=== PATIENT | male | born 1985 | race Caucasian/White ===

== ENCOUNTER 2016-12-14 09:26 | Inpatient (IN) | payer OTHER ==
--- NOTE | 2016-12-14 09:54 | EDPHY ---
H & P Time Seen by Provider: 12/14/16 09:33 HPI/ROS: CHIEF COMPLAINT: Abdominal pain jaundice and itching HISTORY OF PRESENT ILLNESS: Patient presented 3 weeks ago with nausea vomiting to his primary care physician and then started having jaundice 2 weeks ago. He apparently had ultrasound and CT to in 2 weeks ago at [facility], which were negative. His liver function tests continue to increase with his bilirubin 2 days ago at 24 with conjugated 21 and an INR 0.92 days ago as well. Hepatitis panel was positive for B surface antibody but otherwise negative. Today he has continued abdominal discomfort which is mild. His jaundice is worsened and is severe. His itching is also severe and only a little bit helped by Benadryl or Atarax. Worse with oral intake. REVIEW OF SYSTEMS: Eye: no change in vision ENT: no sore throat Cardiac: no chest pain or syncope Pulmonary: no cough or SOB Abdomen: José colored stools Musculoskeletal: no back pain Skin: Jaundice Neuro: no headache Constitutional: no fever : Darker urine A comprehensive 10 point review of systems is otherwise negative aside from elements mentioned in the history of present illness. PAST MEDICAL HISTORY: Was taking a supplement for anxiety but stopped November 24. History of migraines and fibromyalgia. Vasectomy. Social history: No alcohol for the last 2 years. No drugs. No see him enough in. No wild mushrooms. No travel to developing countries. General Appearance: Alert and conversant, cooperative. Eyes: Icteric. ENT, Mouth: Slightly dry mucous membranes. Respiratory: Normal respiratory effort, breath sounds equal, lungs are clear to auscultation. Cardiovascular: Regular rate and rhythm. Gastrointestinal: No right upper quadrant tenderness. Minimal left lower quadrant tenderness. No rebound or guarding. Neurological: Alert and oriented x3. Normally conversant. Face symmetric, normal movement and sensation in all extremities. Skin: Jaundiced Musculoskeletal: No peripheral edema and no joint swelling. Psychiatric: Not agitated. Emergency Department course/MDM: Plan for repeat labs, he did see Dr. Lopez's PA at [facility], plan for repeat imaging and admission for further evaluation. Benadryl 50 mg IV for itching. Discussed with Dr. Cabrera at 10:29 a.m. who was on-call for Dr. Lopez, recommends MRI abdomen and MRCP and he will consult. Smoking Status: Former smoker Constitutional: Initial Vital Signs Temperature (C) 36.4 C 12/14/16 09:27 Heart Rate 75 12/14/16 09:27 Respiratory Rate 16 12/14/16 09:27 Blood Pressure 131/85 H 12/14/16 09:27 O2 Sat (%) 97 12/14/16 09:27 O2 Delivery Mode Room Air Allergies/Adverse Reactions: No Known Allergies Allergy (Unverified 12/14/16 09:28) Home Medications: Medication Instructions Recorded Methocarbamol [Robaxin 750 mg (*)] 750 mg PO QID PRN 08/27/16 Pregabalin [LYRICA] 100 mg PO TID 08/27/16 hydrOXYzine HCL [Hydroxyzine HCl] 50 mg PO QID 09/19/16 traMADol [Ultram 50 mg (*)] 50 mg PO Q4 PRN 09/19/16 Cyclobenzaprine [Flexeril 10 MG 10 mg PO HS 12/14/16 (*)] Dextroamphetamine/Amphetamine 15 mg PO TID 12/14/16 [ADDERALL 15 MG TABLET] Herbals/Supplements -Info Only 1 ea PO DAILY 12/14/16 Omeprazole 40 mg PO DAILY 12/14/16 Sertraline HCl [Zoloft 100mg (*)] 100 mg PO DAILY 12/14/16 Medical Decision Making Consult/Admit Bed Type: [place] [id number], [facility] [address] [facility] - Data Points Laboratory Results: Laboratory Results 12/14/16 09:38 12/14/16 09:38 12/14/16 12/14/16 12/14/16 09:38 09:38 09:38 WBC 9.83 10^3/uL H 10^3/uL (3.80-9.50) RBC 5.14 10^6/uL 10^6/uL (4.40-6.38) Hgb 15.6 g/dL g/dL (13.7-17.5) Hct 44.6 % % (40.0-51.0) MCV 86.8 fL fL (81.5-99.8) MCH 30.4 pg pg (27.9-34.1) MCHC 35.0 g/dL g/dL (32.4-36.7) RDW 15.4 % H % (11.5-15.2) Plt Count 280 10^3/uL 10^3/uL (150-400) MPV 12.3 fL H fL (8.7-11.7) Neut % (Auto) 79.6 % H % (39.3-74.2) Lymph % (Auto) 11.7 % L % (15.0-45.0) [place] % (Auto) 7.3 % % (4.5-13.0) Eos % (Auto) 0.2 % L % (0.6-7.6) Baso % (Auto) 0.4 % % (0.3-1.7) Nucleat RBC Rel Count 0.0 % % (0.0-0.2) Absolute Neuts (auto) 7.82 10^3/uL H 10^3/uL (1.70-6.50) Absolute Lymphs (auto) 1.15 10^3/uL 10^3/uL (1.00-3.00) Absolute Monos (auto) 0.72 10^3/uL 10^3/uL (0.30-0.80) Absolute Eos (auto) 0.02 10^3/uL L 10^3/uL (0.03-0.40) Absolute Basos (auto) 0.04 10^3/uL 10^3/uL (0.02-0.10) Absolute Nucleated RBC 0.00 10^3/uL 10^3/uL (0-0.01) Immature Gran % 0.8 % % (0.0-1.1) Immature Gran # 0.08 10^3/uL 10^3/uL (0.00-0.10) PT 12.2 SEC SEC (12.0-15.0) INR 0.91 (0.83-1.16) Sodium 139 mEq/L mEq/L (134-144) Potassium 4.6 mEq/L mEq/L (3.5-5.2) Chloride 105 mEq/L mEq/L (97-110) Carbon Dioxide 20 mEq/l L mEq/l (22-31) Anion Gap 14 mEq/L mEq/L (8-16) BUN 14 mg/dL mg/dL (7-23) Creatinine 0.7 mg/dL mg/dL (0.7-1.3) Estimated GFR > 60 Glucose 107 mg/dL H mg/dL (70-100) Calcium 9.6 mg/dL mg/dL (8.5-10.4) Total Bilirubin 22.1 mg/dL H mg/dL (0.1-1.4) Conjugated Bilirubin 19.6 mg/dL H mg/dL (0.0-0.5) Unconjugated Bilirubin 2.5 mg/dL H mg/dL (0.0-1.1) AST 42 IU/L IU/L (17-59) ALT 59 IU/L IU/L (21-72) Alkaline Phosphatase 287 IU/L H IU/L (38-126) Total Protein 8.1 g/dL g/dL (6.3-8.2) Albumin 4.2 g/dL g/dL (3.5-5.0) Lipase 76.0 IU/L IU/L (23-300) Medications Given: Discontinued Medications Diphenhydramine HCl (Benadryl Injection) 50 mg IVP EDNOW ONE Stop: 12/14/16 09:52 Last Admin: 12/14/16 09:57 Dose: 50 mg Departure - Departure Disposition: [facility] Inpatient Acute Clinical Impression: Hyperbilirubinemia Condition: Fair
[2016-12-14 09:55] LABS: % IMMATURE GRANULYOCYTES 0.8 % (0.0-1.1); ABSOLUTE IMMATURE GRANULOCYTES 0.08 10^3/uL (0.00-0.10); ADD DIFF? NO; ADD MORPH? NO; ADD SCAN? NO; ATYPICAL LYMPHOCYTE FLAG 0 (0-99); FRAGMENT RBC FLAG 0 (0-99); HEMATOCRIT 44.6 % (40.0-51.0); HEMOGLOBIN 15.6 g/dL (13.7-17.5); LEFT SHIFT FLG 0 (0-99); LIPEMIA HEMOLYSIS FLAG 90 (0-99); MEAN CELL HEMOGLOBIN 30.4 pg (27.9-34.1); MEAN CELL VOLUME 86.8 fL (81.5-99.8); MEAN PLATELET VOLUME 12.3 fL (8.7-11.7); PLATELET CLUMPS FLAG 10 (0-99); PLATELET COUNT 280 10^3/uL (150-400); RED BLOOD CELL COUNT 5.14 10^6/uL (4.40-6.38); RED CELL DISTRIBUTION WIDTH 15.4 % (11.5-15.2)
[2016-12-14 10:03] LABS: INR 0.91 (0.83-1.16); PROTIME(PATIENT) 12.2 SEC (12.0-15.0)
[2016-12-14 10:10] LABS: ALANINE AMINOTRANSFERASE 59 IU/L (21-72); ALBUMIN 4.2 g/dL (3.5-5.0); ALKALINE PHOSPHATASE 287 IU/L (38-126); ANION GAP 14 mEq/L (8-16); ASPARTATE AMINOTRANSFERASE 42 IU/L (17-59); BILIRUBIN,TOTAL 22.1 mg/dL (0.1-1.4); BILIRUBIN-CONJUGATED 19.6 mg/dL (0.0-0.5); BILIRUBIN-UNCONJUGATED 2.5 mg/dL (0.0-1.1); CALCIUM 9.6 mg/dL (8.5-10.4); CARBON DIOXIDE 20 mEq/l (22-31); CHLORIDE 105 mEq/L (97-110); CREATININE 0.7 mg/dL (0.7-1.3); GLOMERULAR FILTRATION RATE > 60; GLUCOSE 107 mg/dL (70-100); POTASSIUM 4.6 mEq/L (3.5-5.2); SODIUM 139 mEq/L (134-144); TOTAL PROTEIN 8.1 g/dL (6.3-8.2)
[2016-12-14] MEDS ORDERED: IOPAMIDOL (ISOVUE-300) 100 ML BTL IV ONE (10:34)
[2016-12-14] MEDS ORDERED: ONDANSETRON DISINTEGRATING 4 MG TAB PO PRN (11:55)
[2016-12-14] MEDS ORDERED: ONDANSETRON 4 MG/2 ML VIAL IVP PRN (11:55)
[2016-12-14] MEDS ORDERED: ACETAMINOPHEN 325 MG TAB PO PRN (11:55)
--- NOTE | 2016-12-14 15:21 | GHP ---
DATE OF ADMISSION: 12/14/2016 CHIEF COMPLAINT: Jaundice and pruritus. HISTORY OF PRESENT ILLNESS: A 31-year-old male with a new hyperbilirubinemia. The patient reports being in his normal state of health approximately 3 weeks ago, when developing some nausea, vomiting, and constipation. The patient was treated symptomatically for his constipation; then noted approximately 2 weeks ago that his constipation converted to soft stools that had lightened in color to nearly a beny color, concurrently noted yellowing of his skin, itching, fatigue, some nausea, no vomiting. The patient has been evaluated in outpatient gastroenterology clinic, by Dr. Lopez, with laboratories and imaging obtained. The patient is presenting today as his symptoms have persisted. His bilirubin is measured at 24 in the outside clinic. Here on the medical floor, the patient is denying any fever or chills, vision changes, notice some mild dysphagia with liquids and solids. Denies chest pain, shortness of breath. Denies abdominal pain, has had beny-colored stools and darkening of his urine. Denies lower extremity edema or abdominal distention. PAST MEDICAL HISTORY: 1. Attention deficit hyperactivity disorder. 2. Fibromyalgia. SOCIAL HISTORY: Negative for tobacco. Patient quit drinking alcohol 2 years ago, but did not have heavy usage prior. Denies illicit drugs or marijuana. FAMILY HISTORY: Negative for liver disease. REVIEW OF SYSTEMS: A 10-point review of systems is negative with the exception of that reported in the HPI. HOSPITAL COURSE: Patient has been on stable dosing of both Lyrica and Adderall for many months. He did use a new herbal supplement for anxiety called Ashwagandha , which he took the recommended dosing for approximately 10 days and completed this early November. Denies any other new supplements or drug exposures. PHYSICAL EXAMINATION: VITAL SIGNS: Blood pressure 120/78, heart rate 56, respiratory rate 16, 98% on room air, 36.8. GENERAL: This is a young male with jaundiced skin. HEENT: Notable for moist mucous membranes. Eye exam is notable for icterus. CARDIAC: Patient is regular rate and rhythm. No murmurs , gallops, or rubs. PULMONARY: Clear to auscultation bilaterally. GASTROINTESTINAL: No appreciable hepatosplenomegaly. Abdomen soft. Has mild tenderness to palpation in the epigastrium and right upper quadrant. MUSCULOSKELETAL: Negative for any lower extremity edema. SKIN: Notable for jaundice. No telangiectasia are appreciated. NEUROLOGIC: No asterixis appreciated. The patient is alert and oriented x3. PSYCHIATRIC: He is pleasant and cooperative on interview and examination. DATA: White count 9.8, hematocrit 44.6, platelets of 280. Creatinine is 0.7, total bilirubin of 22.1, conjugated 19.6, AST 42, ALT 59, alkaline phosphatase of 287. Lipase is 76. Last EKG, which I personally reviewed and interpreted, shows sinus rhythm, normal axis, normal intervals, with no acute ST-T changes. ASSESSMENT AND PLAN: This is a 31-year-old male presenting with progressing painless jaundice. 1. Acute hyperbilirubinemia. The patient has normal AST and ALT pattern most consistent with likely drug exposure. Ordered an MRI and MRCP for workup of his hyperbilirubinemia. It is unclear to us at this time if it is his herbal supplement for anxiety or one of his chronic medications. Per Gastroenterology' s recommendations, we will hold all. Keep the patient n.p.o. for MR imaging. Hydrate and follow his liver function tests. 2. Attention deficit hyperactivity disorder. As above, will hold the patient' s Adderall overnight. 3. Fibromyalgia. We will hold the patient's Lyrica. 4. Prophylaxis. Patient is ambulating. DIET: Regular after his MRI. DISPOSITION: I expect greater than 2 midnights. The patient requires diagnostic workup and supportive care for advancing hyperbilirubinemia and liver dysfunction. I have discussed the case with Dr. Cabrera from Gastroenterology. Patient will be admitted to the medical surgical floor for imaging and supportive care. /[id number]/MODL MTDD
[2016-12-14] MEDS: hydrOXYzine HCL 50 MG TAB PO SCH ×2 (15:29→21:46)
--- NOTE | 2016-12-14 15:41 | GCON ---
DATE OF CONSULTATION: 12/14/2016 CHIEF COMPLAINT: Jaundice and nausea. HISTORY OF PRESENT ILLNESS: The patient is a 31-year-old gentleman who was admitted through the emergency room today by Dr. Dominguez with complaints of progressive nausea, vomiting, and jaundice of 2 weeks' duration. I was asked to see the patient by Dr. Dominguez for evaluation of these symptoms. He states that he was in his usual state of good health until 3 weeks ago when he developed some nausea and pruritus. 2 weeks ago, he developed jaundice. He was evaluated at [facility] as an outpatient with an abdominal CT scan and right upper quadrant ultrasound, and states that both of these were normal. He did have an elevated bilirubin at that time with normal AST and ALT, and hepatitis serology panel was negative with the exception of a positive hepatitis B surface antibody. On questioning the patient, he is not aware of having a hepatitis B vaccine in the past. He states that his jaundice and pruritus have become more severe as an outpatient in spite of using Benadryl and Atarax. He presented to the emergency room today due to worsening nausea and vomiting. He has denied any fevers, chills, or night sweats. He has denied any abdominal pain. There is no family history of liver disease. The patient denies any alcohol consumption. MEDICATIONS PRIOR TO ADMISSION: Included Robaxin 750 mg p.o. q.i.d. p.r.n. muscle aches and pains, pregabalin 100 mg p.o. t.i.d., hydroxyzine HCL 50 mg p.o. q.i.d., cyclobenzaprine 10 mg p.o. q.h.s., tramadol 50 mg p.o. q.4 hours p.r.n., Adderall 15 mg p.o. t.i.d., omeprazole 40 mg daily, sertraline HCL 100 mg p.o. daily, and OTC herbal supplement - Ashwagandha. ALLERGIES: The patient has no known drug allergies. PAST MEDICAL HISTORY: Significant for history of migraines, fibromyalgia, and anxiety disorder, ADHD. PAST SURGICAL HISTORY: Significant for vasectomy. SOCIAL HISTORY: He has had no alcohol for 2 years. He does not take illicit drugs. He has had no prior IV drug abuse. He denies any wild mushroom consumption. He has had no travel outside the [place]. FAMILY HISTORY: Negative for chronic liver disease. REVIEW OF SYSTEMS: Negative for a comprehensive 12-point review of systems other than the symptoms of nausea and vomiting as noted above. PHYSICAL EXAMINATION: VITAL SIGNS: Temperature 36.8 Celsius, pulse 56 and regular, blood pressure 120/78, respiratory rate was 16. O2 saturation 98% on room air. INTEGUMENT: Deeply jaundiced. HEENT: Head atraumatic, normocephalic. Pupils equal, round, reactive to light. EOMs intact. Sclerae anicteric. Nares patent. Mucous membranes moist. Dentition good. Oropharynx normal with Mallampati of II. NECK: Supple. Trachea midline. No palpable cervical or axillary adenopathy. LUNGS: Clear to percussion and auscultation. CARDIOVASCULAR: Regular rhythm and rate. Normal S1, S2 without murmur. Peripheral pulses strong bilaterally. No pedal edema. ABDOMEN: Supple, positive bowel sounds. No liver or spleen tip palpable. No masses or tenderness noted. No fluid wave noted. EXTREMITIES: Without deformity. NEURO : The patient was alert and oriented x3. There are full no focal neurologic deficits. LABS: White count 9.83, hemoglobin 15.6, hematocrit 44.6, platelets 280,000. Pro time 12.2, INR 0.91. Electrolytes normal with the exception of carbon dioxide of 20, creatinine 0.7, BUN is 14, total bilirubin 22.1, conjugated 19.6 , unconjugated 2.5, AST 42, ALT 59, ALP 287, amylase 42, lipase 76. On 2015, his PETER was 1:80. PETER screen was 0.31 (normal less than 1). PETER pattern speckled. SMA was negative. His EB virus captive, antigen IgG was positive, IgM was negative. Nuclear antigen antibody was positive. Hepatitis A IgM antibody negative, hepatitis A antibody total negative, hepatitis B surface antigen negative, hepatitis B surface antibody positive, hepatitis B core IgM negative, hepatitis E antibody negative, hepatitis E antigen negative, hepatitis C antibody negative. IMPRESSION: 1. Jaundice with cholestatic pattern with markedly elevated conjugated bilirubin and moderately elevated alkaline phosphatase with preserved AST and ALT, consistent with drug hepatitis, less likely autoimmune hepatitis, doubt Ariel disease or acute viral hepatitis. 2. Nausea secondary to #1. 3. Pruritus secondary to #1. RECOMMENDATIONS: 1. Diet as tolerated. 2. Serial LFTs. 3. Recheck PETER. 4. Check ammonia level. 5. No need for acute liver biopsy. /[id number]/MODL PHILLIP
[2016-12-14] MEDS ORDERED: GADOBUTROL 10 ML VIAL IVP ONE (16:21)
[2016-12-14] MEDS: diphenhydrAMINE 25 MG CAP PO PRN ×3 (18:46→23:04)
[2016-12-15 05:40] LABS: % IMMATURE GRANULYOCYTES 1.6 % (0.0-1.1); ABSOLUTE IMMATURE GRANULOCYTES 0.12 10^3/uL (0.00-0.10); ADD DIFF? NO; ADD MORPH? NO; ADD SCAN? NO; ATYPICAL LYMPHOCYTE FLAG 0 (0-99); FRAGMENT RBC FLAG 0 (0-99); HEMATOCRIT 41.7 % (40.0-51.0); HEMOGLOBIN 14.5 g/dL (13.7-17.5); LEFT SHIFT FLG 10 (0-99); LIPEMIA HEMOLYSIS FLAG 90 (0-99); MEAN CELL HEMOGLOBIN 29.6 pg (27.9-34.1); MEAN CELL HEMOGLOBIN CONCENTR. 34.8 g/dL (32.4-36.7); MEAN CELL VOLUME 85.1 fL (81.5-99.8); MEAN PLATELET VOLUME 12.7 fL (8.7-11.7); PLATELET CLUMPS FLAG 0 (0-99); PLATELET COUNT 258 10^3/uL (150-400); RED CELL DISTRIBUTION WIDTH 15.5 % (11.5-15.2)
[2016-12-15 06:19] LABS: ALANINE AMINOTRANSFERASE 48 IU/L (21-72); ALBUMIN 3.4 g/dL (3.5-5.0); ALKALINE PHOSPHATASE 229 IU/L (38-126); ANION GAP 11 mEq/L (8-16); ASPARTATE AMINOTRANSFERASE 35 IU/L (17-59); BILIRUBIN,TOTAL 18.1 mg/dL (0.1-1.4); CALCIUM 8.9 mg/dL (8.5-10.4); CARBON DIOXIDE 22 mEq/l (22-31); CHLORIDE 106 mEq/L (97-110); CREATININE 0.8 mg/dL (0.7-1.3); GLOMERULAR FILTRATION RATE > 60; GLUCOSE 103 mg/dL (70-100); POTASSIUM 4.4 mEq/L (3.5-5.2); SODIUM 139 mEq/L (134-144); TOTAL PROTEIN 6.8 g/dL (6.3-8.2)
[2016-12-15 06:40] LABS: BILIRUBIN-CONJUGATED 15.6 mg/dL (0.0-0.5); BILIRUBIN-UNCONJUGATED 2.5 mg/dL (0.0-1.1)
[2016-12-15 06:42] LABS: SPECIMEN ICTERUS 17
[2016-12-15 08:12] VITALS: RESP 12
[2016-12-15] MEDS: hydrOXYzine HCL 50 MG TAB PO SCH ×2 (08:29→12:14)
[2016-12-15] MEDS: diphenhydrAMINE 25 MG CAP PO PRN (10:56)
--- NOTE | 2016-12-15 11:27 | SOAPPROG ---
SOAP Progress Note Assessment/Plan: Assessment: Cholestatic hepatitis - LFT's and symptoms improving; likely drug induced(? ASHWAGANHA). Plan: Case reviewed with Dr Lopez this morning. Home today off all meds with F/U OV with Dr Gatica in our office for second opinion. Johan Cabrera MD 12/15/16 11:31 Subjective: CC: Pruritus, nausea and jaundice. Interval HPI: Patient with less nausea or pruritus today. Willing to go home with close F/U as outpatient. Objective: Vital Signs Temp Pulse Resp BP Pulse Ox 36.6 C 70 12 123/72 H 100 12/15/16 08:00 12/15/16 08:00 12/15/16 08:00 12/15/16 08:00 12/15/16 08:00 Laboratory Results 12/15/16 04:45 12/15/16 04:45 12/14/16 12/15/16 12/16/16 05:59 05:59 05:59 Intake Total 770 Balance 770 PT 12.2 SEC (12.0-15.0) 12/14/16 09:38 INR 0.91 (0.83-1.16) 12/14/16 09:38 Laboratory Tests 12/14/16 12/14/16 12/15/16 09:38 14:57 04:45 Total Bilirubin 22.1 H 18.1 H Conjugated Bilirubin 19.6 H 15.6 H Unconjugated Bilirubin 2.5 H 2.5 H AST 42 35 ALT 59 48 Alkaline Phosphatase 287 H 229 H PETER Screen Pending Physical Exam - Physical Exam General Appearance: WD/WN, alert, no apparent distress Respiratory: chest non-tender, lungs clear, normal breath sounds Cardiac/Chest: normal peripheral pulses, regular rate, rhythm Abdomen: normal bowel sounds, non-tender, soft, organomegaly (no) Skin: warm/dry, jaundice Neuro/Psych: alert, normal mood/affect, oriented x 3 ICD10 Worksheet Patient Problems: Problems Problem Status Onset Hyperbilirubinemia Acute
[2016-12-15 11:40] VITALS: BP 122/80; PULSE 67; TEMP 98; O2SAT 98
--- NOTE | 2016-12-15 19:31 | GDS ---
DISCHARGE DIAGNOSES: Include: 1. Acute hyperbilirubinemia, thought secondary to medication or supplement toxicity. 2. Attention deficit hyperactivity disorder. 3. Fibromyalgia. HISTORY OF PRESENT ILLNESS: This is a 31-year-old male, who presented from the outside clinic with progressing hyperbilirubinemia, which had been noted approximately 2 weeks prior to presentation. F or details of patient's initial presentation, please see the history and physical dated 12/14/2016. CONSULTATIVE SERVICES: Include Gastroenterology. PROCEDURES ON THIS PATIENT: On 12/14/2016, patient had an MRI of the liver that showed mild hepatit is, no ductal abnormalities. HOSPITAL COURSE BY ISSUE: 1. Hyperbilirubinemia: Patient's AST and ALT were normal on presentation. His laboratory findings most consistent with a drug effect. Patient did have a history of taking an herbal supplement call ed aidan for anxiety, but the termination of that supplementation was approximately 2 weeks pr ior to his presentation. It is unclear to us at this time which of his medications is responsible f or his hyperbilirubinemia. We discontinued all medications upon hospital admission and patient's bi lirubin improved from 22 to 18 overnight. We are recommending that he wean down and off his sertral ine and stop all other medications, to incrementally restart those he truly needs after complete res olution of his abnormal liver function tests. Patient will follow with outpatient hepatology. 2. ADHD: As above, we recommend he stop his Adderall treatment at this time until safely restarted in the outpatient setting. 3. Fibromyalgia: We recommended that the patient stop his Lyrica therapy until safely addressed in the outpatient setting. 4. Anxiety: The patient was on 100 mg of Zoloft. We recommended decreasing to 50 mg a day for a we ek, then 50 mg every other day for a week, and then discontinue. MEDICATIONS AT THE TIME OF DISPOSITION: As above, the only home medication that we have continued i s tapering of sertraline. PENDING STUDIES AT THE TIME OF THIS DICTATION: None. FOLLOWUP APPOINTMENTS: Patient is to follow with Hepatology in the next 1-2 weeks for his first pos t disposition followup. I spent greater than 30 minutes in the planning and coordination of this discharge. /[id number]/MODL
== END 2016-12-15 13:11 | disposition home or self-care (01) | DRG 642 ==
LOC: F3E 12:11
PROVIDERS: ADMIT Hospitalist; ATTEND Hospitalist
DX: E78.00 Pure hypercholesterolemia, unspecified (principal); K75.89 Other specified inflammatory liver diseases; T43.505A Adverse effect of unspecified antipsychotics and neuroleptics, initial encounter; L29.9 Pruritus, unspecified; R10.9 Unspecified abdominal pain; F41.9 Anxiety disorder, unspecified; F90.0 Attention-deficit hyperactivity disorder, predominantly inattentive type; M79.7 Fibromyalgia
CPT/HCPCS: 96374; A9585; J1200; Q9967

== ENCOUNTER 2016-12-23 15:36 | Inpatient (IN) | payer OTHER ==
--- NOTE | 2016-12-23 16:24 | EDPHY ---
H & P Time Seen by Provider: 12/23/16 16:14 HPI/ROS: CHIEF COMPLAINT: Itchy and jaundice HISTORY OF PRESENT ILLNESS: This 31-year-old man was admitted to the hospital recently for same symptoms and was discharged on 12/15/2016. At that point the discharge diagnosis was thought to be acute hyper bilirubinemia, thought secondary to medication or supplement toxicity. The patient was seen yesterday by Dr. Meraz's PA in the office; this morning patient tells me gastroenterology office called saying he needed to come into the emergency department to get admitted and have a liver biopsy and ultrasound. Patient had MRI abdomen at his previous admission. Patient says he continues to be jaundiced and very itchy. Itching is not helped by Atarax or Benadryl and not better worse with anything. It is associated with nausea and some abdominal pain. REVIEW OF SYSTEMS: Eye: no change in vision ENT: no sore throat Cardiac: no chest pain or syncope Pulmonary: no cough or SOB Abdomen: No vomiting or diarrhea Musculoskeletal: no back pain Skin: Jaundice Neuro: no headache Constitutional: no fever : no urinary symptoms A comprehensive 10 point review of systems is otherwise negative aside from elements mentioned in the history of present illness. PAST MEDICAL HISTORY: Includes hyperbilirubinemia as noted above, attention deficit hyperactivity disorder fibromyalgia and anxiety. Social history: Nonsmoker, no alcohol. General Appearance: Alert and conversant, cooperative. Eyes: Icteric. ENT, Mouth: Normal mucous membranes. Respiratory: Normal respiratory effort, breath sounds equal, lungs are clear to auscultation. Cardiovascular: Regular rate and rhythm. Gastrointestinal: Abdomen is soft and non tender. Neurological: Alert and oriented x3. Normally conversant. Face symmetric, normal movement and sensation in all extremities. Skin: Jaundiced. Musculoskeletal: No peripheral edema and no joint swelling. Psychiatric: Not agitated. Emergency Department course/MDM: Labs in our computer reviewed from 12/22/2016 including total bilirubin 19.8 with unconjugated 2.8, normal AST and ALT, alkaline phosphatase is 263, INR 0.94. Call is placed to Gastroenterology of the [facility]. 1646: Arabella Gatica. 1700: admit hospitalist, symptomatic rx, GI will consult. Patient is of [facility] primary care but saw Rick at first admission because that is who was on-call for Lopez when he came in initially. Smoking Status: Former smoker Constitutional: Initial Vital Signs Temperature (C) 36.7 C 12/23/16 15:54 Heart Rate 91 12/23/16 15:54 Blood Pressure 120/71 12/23/16 15:54 O2 Sat (%) 100 12/23/16 15:54 O2 Delivery Mode Room Air Allergies/Adverse Reactions: No Known Allergies Allergy (Verified 12/23/16 15:59) Home Medications: Medication Instructions Recorded hydrOXYzine HCL [Hydroxyzine HCl] 50 mg PO QID 09/19/16 diphenhydrAMINE [Benadryl 25 MG 50 mg PO Q6HRS PRN #0 cap 12/15/16 (*)] Medical Decision Making Differential Diagnosis: Differential considered including but not limited to biliary obstruction, hepatitis, medication side effect, hemolysis. Consult/Admit Bed Type: Arabella 1645, Too Ferraro 1720 - Data Points Laboratory Results: Laboratory Results 12/23/16 17:20 12/23/16 17:20 12/23/16 12/23/16 17:20 17:20 WBC 10.33 10^3/uL H 10^3/uL (3.80-9.50) RBC 4.74 10^6/uL 10^6/uL (4.40-6.38) Hgb 14.2 g/dL g/dL (13.7-17.5) Hct 40.8 % % (40.0-51.0) MCV 86.1 fL fL (81.5-99.8) MCH 30.0 pg pg (27.9-34.1) MCHC 34.8 g/dL g/dL (32.4-36.7) RDW 16.1 % H % (11.5-15.2) Plt Count 330 10^3/uL 10^3/uL (150-400) MPV 11.8 fL H fL (8.7-11.7) Neut % (Auto) 67.4 % % (39.3-74.2) Lymph % (Auto) 19.1 % % (15.0-45.0) [place] % (Auto) 9.0 % % (4.5-13.0) Eos % (Auto) 2.3 % % (0.6-7.6) Baso % (Auto) 1.2 % % (0.3-1.7) Nucleat RBC Rel Count 0.0 % % (0.0-0.2) Absolute Neuts (auto) 6.97 10^3/uL H 10^3/uL (1.70-6.50) Absolute Lymphs (auto) 1.97 10^3/uL 10^3/uL (1.00-3.00) Absolute Monos (auto) 0.93 10^3/uL H 10^3/uL (0.30-0.80) Absolute Eos (auto) 0.24 10^3/uL 10^3/uL (0.03-0.40) Absolute Basos (auto) 0.12 10^3/uL H 10^3/uL (0.02-0.10) Absolute Nucleated RBC 0.00 10^3/uL 10^3/uL (0-0.01) Immature Gran % 1.0 % % (0.0-1.1) Immature Gran # 0.10 10^3/uL 10^3/uL (0.00-0.10) Sodium 142 mEq/L mEq/L (134-144) Potassium 4.1 mEq/L mEq/L (3.5-5.2) Chloride 106 mEq/L mEq/L (97-110) Carbon Dioxide 23 mEq/l mEq/l (22-31) Anion Gap 13 mEq/L mEq/L (8-16) BUN 23 mg/dL mg/dL (7-23) Creatinine 0.8 mg/dL mg/dL (0.7-1.3) Estimated GFR > 60 Glucose 84 mg/dL mg/dL (70-100) Calcium 9.5 mg/dL mg/dL (8.5-10.4) Total Bilirubin 18.2 mg/dL H mg/dL (0.1-1.4) Conjugated Bilirubin 15.5 mg/dL H mg/dL (0.0-0.5) Unconjugated Bilirubin 2.7 mg/dL H mg/dL (0.0-1.1) AST 54 IU/L IU/L (17-59) ALT 53 IU/L IU/L (21-72) Alkaline Phosphatase 255 IU/L H IU/L (38-126) Total Protein 8.1 g/dL g/dL (6.3-8.2) Albumin 4.1 g/dL g/dL (3.5-5.0) Medications Given: Discontinued Medications Diphenhydramine HCl (Benadryl Injection) 50 mg IVP EDNOW ONE Stop: 12/23/16 17:02 Last Admin: 12/23/16 17:32 Dose: 50 mg Departure - Departure Disposition: [facility] Inpatient Acute Clinical Impression: Hyperbilirubinemia Condition: Good
[2016-12-23 17:41] LABS: ADD DIFF? NO; ADD MORPH? NO; ADD SCAN? NO; ATYPICAL LYMPHOCYTE FLAG 0 (0-99); FRAGMENT RBC FLAG 20 (0-99); HEMATOCRIT 40.8 % (40.0-51.0); HEMOGLOBIN 14.2 g/dL (13.7-17.5); LEFT SHIFT FLG 0 (0-99); LIPEMIA HEMOLYSIS FLAG 90 (0-99); MEAN CELL HEMOGLOBIN CONCENTR. 34.8 g/dL (32.4-36.7); MEAN CELL VOLUME 86.1 fL (81.5-99.8); MEAN PLATELET VOLUME 11.8 fL (8.7-11.7); PLATELET CLUMPS FLAG 20 (0-99); PLATELET COUNT 330 10^3/uL (150-400); RED BLOOD CELL COUNT 4.74 10^6/uL (4.40-6.38); RED CELL DISTRIBUTION WIDTH 16.1 % (11.5-15.2)
[2016-12-23 18:11] LABS: ALANINE AMINOTRANSFERASE 53 IU/L (21-72); ALBUMIN 4.1 g/dL (3.5-5.0); ALKALINE PHOSPHATASE 255 IU/L (38-126); ANION GAP 13 mEq/L (8-16); ASPARTATE AMINOTRANSFERASE 54 IU/L (17-59); BILIRUBIN,TOTAL 18.2 mg/dL (0.1-1.4); BILIRUBIN-CONJUGATED 15.5 mg/dL (0.0-0.5); BILIRUBIN-UNCONJUGATED 2.7 mg/dL (0.0-1.1); CALCIUM 9.5 mg/dL (8.5-10.4); CARBON DIOXIDE 23 mEq/l (22-31); CHLORIDE 106 mEq/L (97-110); CREATININE 0.8 mg/dL (0.7-1.3); GLOMERULAR FILTRATION RATE > 60; GLUCOSE 84 mg/dL (70-100); POTASSIUM 4.1 mEq/L (3.5-5.2); SODIUM 142 mEq/L (134-144); TOTAL PROTEIN 8.1 g/dL (6.3-8.2)
[2016-12-23] MEDS ORDERED: ONDANSETRON DISINTEGRATING 4 MG TAB PO PRN (18:12)
[2016-12-23] MEDS ORDERED: HYDROmorphONE/DILAUDID 1 MG/ML SYR IVP PRN (18:12)
[2016-12-23] MEDS ORDERED: ONDANSETRON 4 MG/2 ML VIAL IVP PRN (18:12)
[2016-12-23] MEDS ORDERED: DIPHENHYDRAMINE CREAM TP PRN (18:12)
--- NOTE | 2016-12-23 19:01 | GHP ---
DATE OF ADMISSION: 12/23/2016 Mr. Kelley is a pleasant 31-year-old gentleman with a history of fibromyalgia and recent cholesta tic jaundice who presents with symptomatic jaundice including pruritus, nausea, vomiting. It sounds like he has fibromyalgia for which he takes tramadol, Lyrica. He also takes an herbal sup plement known as Ashwagandha. He was noted to have rising bilirubin beginning in early November. Dominic good was admitted recently here and he had a relatively unremarkable MRCP and has had a history of norm al hep serologies and other tests. He had a followup appointment with Dr. Gatica yesterday where h is bilirubin was 19.8. He continues to experience significant pruritus as well as beny colored stoo ls and dark colored urine. He also notes he may have had a dark-colored stool with blood. He has n ot had any hematemesis. He has had no history of injection drug use, and he does not take excessive Tylenol nor does he take any Tylenol containing pain medications, etc. REVIEW OF SYSTEMS: A complete 10-point review of systems conducted and negative except as noted in the HPI. PAST MEDICAL HISTORY: 1. Fibromyalgia. 2. Cholestasis. HOME MEDICATIONS: Hydroxyzine, diphenhydramine as well as cholestyramine which he says is not helpf ul with his pruritus. SOCIAL HISTORY: He lives in [place]. Minimal tobacco, minimal alcohol. No injection drug use. FAMILY HISTORY: Negative for significant liver disease. ALLERGIES: He has no known drug allergies. PHYSICAL EXAM: VITAL SIGNS: Temp 36.7, blood pressure 120/71, pulse 91, breathing 18 times a minut e, 100% on room air. GENERAL: Jaundiced. No acute distress. HEENT: Sclerae icteric. Oropharynx is clear. Mucous membranes moist. NECK: Supple without lymphadenopathy or JVD. LUNGS: Clear to auscultation bilaterally. HEART: S1, S2. ABDOMEN: Soft, nontender, nondistended. There is no l iver edge palpable. EXTREMITIES: Lower extremities without edema. Calves are nontender. SKIN: W ithout rash. NEUROLOGIC: Nonfocal. I have discussed the case with Dr. Demetrio Caballero. LABS: Sodium 142, potassium 4.1, chloride 106, bicarb 23, BUN 23, creatinine 0.8, glucose 84, total bilirubin is 18.2 and 15.5, it is conjugated. ALT and AST are in the 50s and normal. Alk phosphat ase is elevated at 255, albumin is 4.1, white count 10.3, hematocrit 40.8, platelets are 330,000. R ecent INR yesterday was 0.94. He had an abdominal MRI on 12/14/2016 showing mild hepatitis with nor mal hepatobiliary system with no hepatomegaly. ASSESSMENT/PLAN: This is a 31-year-old gentleman with cholestasis. 1. Cholestasis, uncertain etiology. Dr. Johan Cabrera's note on 12/14/2016 nicely summarizes the previous serologic workup. Admitted for liver biopsy which is going to be performed tomorrow. 2. Pruritus. Will add increasing dose of cholestyramine and provide IV Benadryl and some IV Dilaud id. 3. Prophylaxis. Pharmacologic prophylaxis contraindicated given liver biopsy tomorrow. 4. Prebiopsy, will check an INR. DISPOSITION: Inpatient status. /[id number]/MODL
[2016-12-23 19:09] LABS: INR 0.91 (0.83-1.16); PROTIME(PATIENT) 12.2 SEC (12.0-15.0)
[2016-12-23 20:04] VITALS: RESP 16
[2016-12-23] MEDS: hydrOXYzine HCL 50 MG TAB PO SCH (21:51)
[2016-12-23] MEDS ORDERED: CHOLESTYRAMINE/SUCROSE 4 GM PKT PO SCH (22:00)
--- NOTE | 2016-12-23 22:06 | SOAPPROG ---
SOAP Progress Note Assessment/Plan: Assessment: Chart reviewed, pt. not seen yet, full note to follow. Overall, suspect drug- induced cholestasis (from either a Rx med or herbal). This often can take weeks to month(s) to resolve. - no further outpt. meds, herbs, vitamins, supplements, etc., including zoloft - liver bx - ativan prn itchiness (besides benadryl, atarax) - agree with cholestyramine, but will decrease dose - complete his serologic work-up with ferritin, [id number], CMV, ceruloplasmin Thanks! 12/23/16 22:06 Objective: Vital Signs Temp Pulse Resp BP Pulse Ox 36.7 C 62 16 116/76 99 12/23/16 20:00 12/23/16 20:00 12/23/16 20:00 12/23/16 20:00 12/23/16 20:00 12/22/16 12/23/16 12/24/16 05:59 05:59 05:59 Intake Total 0 Balance 0 PT 12.2 SEC (12.0-15.0) 12/23/16 17:20 INR 0.91 (0.83-1.16) 12/23/16 17:20 ICD10 Worksheet Patient Problems: Problems Problem Status Onset Hyperbilirubinemia Acute
[2016-12-24 06:11] LABS: ALANINE AMINOTRANSFERASE 48 IU/L (21-72); ALBUMIN 3.5 g/dL (3.5-5.0); ALKALINE PHOSPHATASE 213 IU/L (38-126); ANION GAP 9 mEq/L (8-16); ASPARTATE AMINOTRANSFERASE 52 IU/L (17-59); BILIRUBIN,TOTAL 15.3 mg/dL (0.1-1.4); CALCIUM 9.3 mg/dL (8.5-10.4); CARBON DIOXIDE 20 mEq/l (22-31); CHLORIDE 108 mEq/L (97-110); CREATININE 0.8 mg/dL (0.7-1.3); GLOMERULAR FILTRATION RATE > 60; GLUCOSE 89 mg/dL (70-100); POTASSIUM 4.4 mEq/L (3.5-5.2); SODIUM 137 mEq/L (134-144); TOTAL PROTEIN 6.8 g/dL (6.3-8.2)
[2016-12-24 06:12] LABS: INR 0.92 (0.83-1.16); PROTIME(PATIENT) 12.3 SEC (12.0-15.0)
[2016-12-24 06:14] LABS: SPECIMEN ICTERUS 11
[2016-12-24 06:21] LABS: BILIRUBIN-CONJUGATED 12.7 mg/dL (0.0-0.5); BILIRUBIN-UNCONJUGATED 2.6 mg/dL (0.0-1.1)
[2016-12-24] MEDS: hydrOXYzine HCL 50 MG TAB PO SCH ×4 (08:44→23:29)
[2016-12-24] MEDS: CHOLESTYRAMINE/SUCROSE 4 GM PKT PO SCH ×3 (09:22→23:29)
--- NOTE | 2016-12-24 10:48 | GCON ---
GI INPATIENT CONSULTATION. DATE OF CONSULTATION: 12/24/2016 HISTORY OF PRESENT ILLNESS: I was kindly requested to see the patient by Dr. Demetrio Kirk in consultation for a chief complaint of jaundice. He developed this recently. Prior to his jaundice, he was on multiple medications for anxiety and ADHD, including Zoloft, Lyrica, Adderall, tramadol, Robaxin, and Flexeril. He was also taking an herbal supplement called ashwagandha. Once he developed jaundice, all of the above was stopped, although his Zoloft (until recently) was just tapered. Because of continued significant itchiness, he was admitted to the hospital. Today, with IV Benadryl as needed, Atarax, etc., he is less itchy. As an outpatient, he did start cholestyramine, but he believes this did not help. However, he only took this for 3 days. He has undergone an extensive negative workup. This includes a CT and MRI, which were reportedly unremarkable for the liver. PETER, anti-smooth muscle antibody, and viral hepatitis serology are negative. Normal coags. Iron saturation 57%, ferritin 943. No biliary obstruction on MRI of the abdomen. Normal lipase. Celiac serology is negative. Normal gallbladder on CT scan. Laboratories on admission showed a total bilirubin of 18.2. Today, it is 15.3. Alkaline phosphatase on admission 255. Today, it is 213. He denies alcohol abuse. PAST MEDICAL HISTORY: 1. As above. 2. Tonsillectomy. 3. Vasectomy. 4. Otherwise noncontributory. MEDICATIONS: Outpatient medications include the above. Inpatient medications include Questran 8 g t.i.d., Benadryl cream, Benadryl IV as needed, Atarax, Zofran as needed. SOCIAL HISTORY: He is . FAMILY HISTORY: Negative for similar jaundice. REVIEW OF SYSTEMS: Positive pertinent review of systems as per my HPI. Otherwise, a complete review of systems is negative. PHYSICAL EXAM: CONSTITUTIONAL: Nontoxic-appearing gentleman. SKIN: Jaundiced , dry. EYES: Pupils equal, round, and reactive to light accommodation. EARS, NOSE, MOUTH, AND THROAT: Oropharynx without masses, moist mucosa. CARDIOVASCULAR: Normal S2. Normal PMI. RESPIRATORY: Clear to auscultation and percussion anteriorly. GASTROINTESTINAL: Abdomen is soft, nontender. NEUROLOGIC: Grossly nonfocal. Cranial nerves grossly intact. PSYCHIATRIC: Orientation and insight appropriate. MUSCULOSKELETAL: Strength is grossly normal throughout. Normal station. LABORATORIES: Include the above. Normal CBC, except for a slightly elevated white count of 10.3. Normal coags. Normal electrolytes. ASSESSMENT: Jaundice. Almost certainly represents drug-induced cholestasis. Suspect most likely to one of his herbal supplements, such as ashwagandha. In terms of his prescription medications, drug-induced cholestasis is not frequently reported, but certainly "any medicine can do anything." In general, a drug-induced cholestasis can take weeks to sometimes even months to resolve. His bilirubin has decreased from 18 to 15, however, so possibly he is beginning to show a trend toward resolution. Other possibilities are much less likely, such as Ariel's disease, EBV or CMV, primary biliary cirrhosis, alpha-1 antitrypsin deficiency. PLAN: 1. Liver biopsy, to try and be more definitive about what caused the above. This is especially important, as he is quite symptomatic with his itchiness and now has had 2 hospitalizations for this problem. 2. Blood work for alpha-1 antitrypsin level, antimitochondrial antibody, Alicia-Kowalski virus, CMV, ceruloplasmin. 3. Agree with Benadryl and Atarax as needed. 4. Agree with cholestyramine, but will decrease the dose to 4 g t.i.d. 5. Ativan as needed for breakthrough itchiness. 6. Agree with totally stopping his Zoloft. At this point, we will follow him informally. It will take some time to get his liver biopsy and specialty blood work back. Once he is doing better in terms of his itchiness, okay from a GI standpoint to discharge home, and we will continue to follow him closely as an outpatient. Upon discharge, would recommend cholestyramine 4 g t.i.d., Benadryl orally as needed, and Atarax orally as needed. In addition, would also send him home with some Ativan, 1 mg p.o. t.i.d. p.r.n. for itchiness despite the above. Thank you for allowing me to help in the care of this patient. Copy requested to: KOSTA Rodrigues /[id number]/MODL MTDD
--- NOTE | 2016-12-24 11:25 | HOSPPROG ---
Hospitalist Progress Note Assessment/Plan: This is a 31-year-old male presenting with jaundice and pruritus # cholestasis unclear etiology # pruritus secondary to above Plan: -liver biopsy scheduled for today -continue to monitor LFTs -supportive/symptomatic care with antihistamines and Ativan Will change to inpatient status Subjective: Patient reports itching. He has been NPO after midnight for scheduled liver biopsy today. Objective: Vital Signs Temp Pulse Resp BP Pulse Ox 36.6 C 61 16 102/69 97 12/24/16 07:42 12/24/16 07:42 12/24/16 07:42 12/24/16 07:42 12/24/16 07:42 Laboratory Results 12/24/16 05:13 12/23/16 12/24/16 12/25/16 05:59 05:59 05:59 Intake Total 0 Balance 0 PT 12.3 SEC (12.0-15.0) 12/24/16 05:13 INR 0.92 (0.83-1.16) 12/24/16 05:13 - Physical Exam Constitutional: no apparent distress, appears nourished, not in pain Cardiovascular: regular rate and rhythym, no murmur, rub, or gallop Respiratory: no respiratory distress, no rales or rhonchi, clear to auscultation Gastrointestinal: normoactive bowel sounds, soft, non-tender abdomen, no palpable masses, No guarding, No rebound ICD10 Worksheet Patient Problems: Problems Problem Status Onset Hyperbilirubinemia Acute
[2016-12-24] MEDS: LORazepam 2 MG/ML INJ IVP PRN ×2 (13:32→19:33)
[2016-12-24] MEDS ORDERED: LIDOCAINE 1% 30 ML SDV ONE (14:22)
[2016-12-24] MEDS ORDERED: NA BICARBONATE 50 MEQ/50 ML VIAL ONE (14:22)
--- NOTE | 2016-12-24 17:06 | POSTOPPROG ---
Post Op Note Date of Operation: 12/24/16 Surgeon: Dallas Santiago [employer] Liaison Officer: Farhan Helios TECH Anesthesia: IV Sedation (Moderate Sedation) Pre-op Diagnosis: Hepatitis Post-op Diagnosis: Hepatitis Indication: Jaundice Procedure: Ultrasound guided liver biopsy Findings: No bleeding Inf/Abcess present in the surg proc area at time of surgery?: No Depth: Organ Space (Liver) EBL: Minimal Complications: No immediate complication Drains: Silas, Other (None) Specimen(s): 18 gauge cores times 3
[2016-12-24] MEDS: oxyCODONE IR 5 MG TAB PO PRN (19:33)
[2016-12-25] MEDS: LORazepam 2 MG/ML INJ IVP PRN ×2 (00:54→09:31)
[2016-12-25] MEDS: oxyCODONE IR 5 MG TAB PO PRN ×3 (04:03→13:28)
[2016-12-25] MEDS: hydrOXYzine HCL 50 MG TAB PO SCH ×2 (04:03→13:33)
[2016-12-25 04:40] LABS: % IMMATURE GRANULYOCYTES 1.3 % (0.0-1.1); ABSOLUTE IMMATURE GRANULOCYTES 0.13 10^3/uL (0.00-0.10); ADD DIFF? NO; ADD MORPH? NO; ADD SCAN? NO; ATYPICAL LYMPHOCYTE FLAG 0 (0-99); FRAGMENT RBC FLAG 20 (0-99); HEMATOCRIT 40.5 % (40.0-51.0); HEMOGLOBIN 13.9 g/dL (13.7-17.5); LEFT SHIFT FLG 10 (0-99); LIPEMIA HEMOLYSIS FLAG 90 (0-99); MEAN CELL HEMOGLOBIN 30.6 pg (27.9-34.1); MEAN CELL HEMOGLOBIN CONCENTR. 34.3 g/dL (32.4-36.7); MEAN CELL VOLUME 89.2 fL (81.5-99.8); MEAN PLATELET VOLUME 11.7 fL (8.7-11.7); PLATELET CLUMPS FLAG 0 (0-99); PLATELET COUNT 340 10^3/uL (150-400); RED BLOOD CELL COUNT 4.54 10^6/uL (4.40-6.38); RED CELL DISTRIBUTION WIDTH 16.2 % (11.5-15.2)
[2016-12-25 04:47] LABS: ALANINE AMINOTRANSFERASE 54 IU/L (21-72); ALBUMIN 3.6 g/dL (3.5-5.0); ALKALINE PHOSPHATASE 235 IU/L (38-126); ANION GAP 13 mEq/L (8-16); ASPARTATE AMINOTRANSFERASE 60 IU/L (17-59); BILIRUBIN,TOTAL 15.7 mg/dL (0.1-1.4); CALCIUM 9.1 mg/dL (8.5-10.4); CARBON DIOXIDE 23 mEq/l (22-31); CHLORIDE 103 mEq/L (97-110); GLOMERULAR FILTRATION RATE > 60; GLUCOSE 83 mg/dL (70-100); SODIUM 139 mEq/L (134-144); TOTAL PROTEIN 7.1 g/dL (6.3-8.2)
[2016-12-25 04:48] LABS: SPECIMEN ICTERUS 11
[2016-12-25 04:55] LABS: BILIRUBIN-CONJUGATED 13.3 mg/dL (0.0-0.5); BILIRUBIN-UNCONJUGATED 2.4 mg/dL (0.0-1.1)
[2016-12-25 09:05] VITALS: BP 98/66; PULSE 70; TEMP 97.8; O2SAT 96
[2016-12-25] MEDS: CHOLESTYRAMINE/SUCROSE 4 GM PKT PO SCH (10:30)
--- NOTE | 2016-12-25 16:38 | GDS ---
[f rep st] DISCHARGE SUMMARY DISCHARGE DIAGNOSES: 1. Cholestasis unclear etiology, possibly drug induced. 2. Pruritus secondary to above. CONSULTANTS: MD FERNANDO Evans, [facility] of [facility]. HOSPITAL COURSE: Cholestasis: The patient presented to the hospital with signs of jaundice with to matthew bilirubin of 18.2, conjugated bilirubin 15.5, and unconjugated bilirubin of 2.7. Seen by GI, o started him on cholestyramine. The patient underwent a liver biopsy on 12/24/2016. His bilirubin has slowly trended down. The patient has suffered from severe pruritus. He has had some benefits since starting the cholestyramine and is also using Benadryl and Ativan as needed. On day of discha rge, the patient states that he is starting to feel slightly better and is agreeable to be discharge d home. Prior to discharge, I did discuss the case with Dr. Bell who will help arrange outpatient f ollowup. PHYSICAL EXAM: VITAL SIGNS: On day of discharge, blood pressure 113/75, pulse 75, respiratory rate 16, O2 saturation 97% on room air. Temperature afebrile. GENERAL: No acute distress. HEART: S1 , S2. LUNGS: Clear. ABDOMEN: Soft. SKIN: Jaundiced. Sclerae slightly icteric. DIAGNOSTICS: Total bilirubin on day of discharge was 15.7, conjugated bilirubin 13.3, unconjugated bilirubin 2.4, AST 60, ALT 54, alkaline phosphatase 235. PENDING STUDIES: EBV antibodies, CMV antibodies are pending. Alpha 1 antitrypsin and ceruloplasmin were pending. Liver biopsy pathology is pending. DISCHARGE MEDICATIONS: Please refer to discharge medication reconciliation in [facility] for full det ails. Below is a preliminary list. New medications on hospital discharge: Cholestyramine 4 g p.o. three times daily, Ativan 0.5-1 mg p .o. q.6 hours to be used second-line for itching, hydroxyzine 50 mg p.o. four times daily p.r.n. itc randy, oxycodone 5 mg p.o. q.4 hours p.r.n. postprocedure pain. DISCHARGE INSTRUCTIONS: The patient will be discharged from the hospital where he was urged to foll ow up with GI of the [facility] next week to follow up his biopsy results. He should also follow up wi th his primary care provider for routine hospital followup. /[id number]/MODL
[2016-12-25 17:26] LABS: ALPHA-1-ANTITRYPSIN SERUM 175 mg/dL (100 - 190)
--- NOTE | 2016-12-25 20:23 | SOAPPROG ---
SOAP Progress Note Assessment/Plan: Assessment: Jaundice. Overall, suspect drug-induced cholestasis (from either a Rx med or herbal). TB today about the same. This often can take weeks to month(s) to resolve. In terms of itchiness, doing better. - agree with d/c home. - please see my recommendations from yesterday - no herbal supplements whatsoever - In addition, if possible, would recommend holding all of his prior outpt. medications, until his jaundice resolves. Then, if necessary, can restart them , but one at a time, waiting several weeks to make sure no reoccurence of jaundice, before starting the next one, etc. - I will arrange outpt G.I./hepatology f/u - I will f/u on outstanding labs, liver bx Thanks! 12/25/16 20:20 Subjective: cc: jaundice Less itchy. Denies rigors, chills, sweats. Objective: Vital Signs Temp Pulse Resp BP Pulse Ox 36.6 C 70 16 98/66 L 96 12/25/16 08:00 12/25/16 08:00 12/25/16 08:00 12/25/16 08:00 12/25/16 08:00 Laboratory Results 12/25/16 04:23 12/25/16 04:23 12/24/16 12/25/16 12/26/16 05:59 05:59 05:59 Intake Total 0 400 Balance 0 400 PT 12.3 SEC (12.0-15.0) 12/24/16 05:13 INR 0.92 (0.83-1.16) 12/24/16 05:13 TB 15.7 CMV, EBV, ceruloplasmin, [id number], liver bx pending. Previously sent outpt. AMA pending. Physical Exam - Physical Exam General Appearance: WD/WN, alert, no apparent distress EENT: PERRL/EOMI, normal ENT inspection, pharynx normal, TMs normal Neck: non-tender, full range of motion, supple, normal inspection Respiratory: chest non-tender, lungs clear, normal breath sounds Cardiac/Chest: normal peripheral pulses, regular rate, rhythm Peripheral Pulses: 2+: carotid (R), carotid (L), femoral (R), femoral (L), dorsalis-pedis (R), dorsalis-pedis (L) Abdomen: normal bowel sounds, non-tender, soft Male Genitalia: deferred Rectal: deferred Back: Normal inspection Skin: warm/dry, jaundice Lymphatic: no adenopathy Extremities: normal range of motion, non-tender, normal inspection, normal capillary refill Neuro/Psych: no motor/sensory deficits, alert, normal mood/affect, oriented x 3 ICD10 Worksheet Patient Problems: Problems Problem Status Onset Hyperbilirubinemia Acute
[2016-12-26 14:12] LABS: ANTI EBNA Positive (Negative); ANTI VCA/IgG Positive (Negative); ANTI VCA/IgM Negative (Negative)
[2016-12-27 21:23] LABS: CERULOPLASMIN SERUM 43 mg/dL (18-36)
== END 2016-12-25 15:33 | disposition home or self-care (01) | DRG 446 ==
LOC: F1N 18:34
PROVIDERS: ADMIT Internal Medicine; ATTEND Internal Medicine
PROC: 0FB03ZX Excision of Liver, Percutaneous Approach, Diagnostic (ICD-10-PCS; principal; 2016-12-24 16:31)
DX: K83.1 Obstruction of bile duct (principal); L29.8 Other pruritus; K73.9 Chronic hepatitis, unspecified; F90.0 Attention-deficit hyperactivity disorder, predominantly inattentive type; M79.7 Fibromyalgia; F41.9 Anxiety disorder, unspecified; T40.4X5A Adverse effect of other synthetic narcotics, initial encounter; T42.6X5A Adverse effect of other antiepileptic and sedative-hypnotic drugs, initial encounter; T50.905A Adverse effect of unspecified drugs, medicaments and biological substances, initial encounter
CPT/HCPCS: 82103-90; 82390-90; 86644-90; 86645-90; 86664-90; 86665-90; 96374; J1200

== ENCOUNTER 2017-02-03 14:55 | Emergency (ER) | payer OTHER ==
--- NOTE | 2017-02-03 15:18 | CPEKG ---
Heart Rate: 64 RR Interval: 938 P-R Interval: 152 QRSD Interval: 78 QT Interval: 388 QTC Interval: 401 P [place]: 26 QRS [place]: 7 T Wave [place]: 34 EKG Severity - NORMAL ECG - EKG Impression: SINUS RHYTHM Electronically Signed By: Venu Montez 04-Feb-2017 23:49:29
[2017-02-03] MEDS ORDERED: NS 1,000 ML IV ONE (15:47)
[2017-02-03] MEDS ORDERED: ASPIRIN 325 MG TAB PO ONE (15:47)
--- NOTE | 2017-02-03 15:56 | EDPHY ---
H & P Stated Complaint: Chest Pain, Time Seen by Provider: 02/03/17 15:26 HPI/ROS: Chief Complaint: Chest pain HPI: 31-year-old male presenting with chest pain since waking up yesterday morning. Pain is in his left upper chest and radiates to his shoulder. It is worse with movement and deep breaths. He has no pain at rest. Is been constant since yesterday about a 7/10. He took aspirin and ibuprofen with relief. No shortness of breath. No cough. No fevers or chills. Does not have a family history of coronary artery disease. No recent travel or periods of immobility. ROS: 10 point Review of Systems is negative except as noted in the HPI. PMH: Attention deficit hyperactivity disorder Social History: No smoking, no alcohol, no recreational drug use Family History: No family history of coronary artery disease at a young age in first-degree relative Physical Exam: Gen: Awake, Alert, No Distress HEENT: Nose: no rhinorrhea Eyes: PERRLA, EOMI Mouth: Moist mucosa Neck: Supple, no JVD Chest: This tenderness in his left pectoralis muscle reproducing his presenting complaints, lungs clear to auscultation Heart: S1, S2 normal, no murmur Abd: Soft, non-tender, no guarding Back: no CVA tenderness, no midline tenderness Ext: no edema, non-tender Skin: no rash Neuro: CN II-XII intact, Sensation grossly intact, Strength 5/5 in bilateral upper and lower extremities - Personal History Current Tetanus/Diphtheria Vaccine: Yes Current Tetanus Diphtheria and Acellular Pertussis (TDAP): Yes - Medical/Surgical History Hx Asthma: No Hx Chronic Respiratory Disease: No Hx Diabetes: No Hx Cardiac Disease: No Hx Renal Disease: No Hx Cirrhosis: No Hx Alcoholism: Yes Hx HIV/AIDS: No Hx Splenectomy or Spleen Trauma: No Other PMH: med hx- migraines, fibromylagia, etoh (sober x2 years). surg- vasectomy,rt ft(cysts) and tonsils, elevated liver enzymes-2017 - Social History Smoking Status: Former smoker Constitutional: Initial Vital Signs Temperature (C) 36.7 C 02/03/17 15:00 Heart Rate 66 02/03/17 15:00 Respiratory Rate 20 02/03/17 15:00 Blood Pressure 126/99 H 02/03/17 15:00 O2 Sat (%) 100 02/03/17 15:00 O2 Delivery Mode Room Air Allergies/Adverse Reactions: No Known Allergies Allergy (Verified 12/23/16 15:59) Home Medications: Medication Instructions Recorded NK [No Known Home Meds] 02/03/17 Medical Decision Making - Diagnostics EKG Interpretation: ECG time 3:16 p.m., sinus rhythm rate of 64, normal axis, normal intervals, no acute ST or T-wave changes. Impression: Normal ECG Imaging Results: Imaging Impressions Chest X-Ray 02/03/17 15:50 Impression: No acute pulmonary disease. Imaging: I viewed and interpreted images myself ED Course/Re-evaluation: 31-year-old male presenting with atypical chest pain. Normal ECG. Negative troponin. Normal chest x-ray. Pain is been constant since yesterday. Is reproducible with palpation of his left pectoralis muscle. Symptoms consistent with musculoskeletal chest pain will send him home with instructions for ibuprofen alternating with acetaminophen, ice, follow up with primary care. - Data Points Laboratory Results: Laboratory Results 02/03/17 15:15 02/03/17 15:15 02/03/17 02/03/17 15:15 15:15 WBC 9.12 10^3/uL 10^3/uL (3.80-9.50) RBC 4.37 10^6/uL L 10^6/uL (4.40-6.38) Hgb 13.9 g/dL g/dL (13.7-17.5) Hct 39.8 % L % (40.0-51.0) MCV 91.1 fL fL (81.5-99.8) MCH 31.8 pg pg (27.9-34.1) MCHC 34.9 g/dL g/dL (32.4-36.7) RDW 14.2 % % (11.5-15.2) Plt Count 269 10^3/uL 10^3/uL (150-400) MPV 11.0 fL fL (8.7-11.7) Neut % (Auto) 69.1 % % (39.3-74.2) Lymph % (Auto) 22.1 % % (15.0-45.0) [place] % (Auto) 5.7 % % (4.5-13.0) Eos % (Auto) 2.1 % % (0.6-7.6) Baso % (Auto) 0.8 % % (0.3-1.7) Nucleat RBC Rel Count 0.0 % % (0.0-0.2) Absolute Neuts (auto) 6.30 10^3/uL 10^3/uL (1.70-6.50) Absolute Lymphs (auto) 2.02 10^3/uL 10^3/uL (1.00-3.00) Absolute Monos (auto) 0.52 10^3/uL 10^3/uL (0.30-0.80) Absolute Eos (auto) 0.19 10^3/uL 10^3/uL (0.03-0.40) Absolute Basos (auto) 0.07 10^3/uL 10^3/uL (0.02-0.10) Absolute Nucleated RBC 0.00 10^3/uL 10^3/uL (0-0.01) Immature Gran % 0.2 % % (0.0-1.1) Immature Gran # 0.02 10^3/uL 10^3/uL (0.00-0.10) Sodium 142 mEq/L mEq/L (134-144) Potassium 4.6 mEq/L mEq/L (3.5-5.2) Chloride 103 mEq/L mEq/L (97-110) Carbon Dioxide 26 mEq/l mEq/l (22-31) Anion Gap 13 mEq/L mEq/L (8-16) BUN 11 mg/dL mg/dL (7-23) Creatinine 0.7 mg/dL mg/dL (0.7-1.3) Estimated GFR > 60 Glucose 93 mg/dL mg/dL (70-100) Calcium 9.4 mg/dL mg/dL (8.5-10.4) Troponin I < 0.012 ng/mL ng/mL (0-0.034) Medications Given: Discontinued Medications Aspirin (Aspirin) 325 mg PO EDNOW ONE Stop: 02/03/17 15:48 Last Admin: 02/03/17 15:56 Dose: 325 mg Sodium Chloride (Ns) 1,000 mls @ 0 mls/hr IV EDNOW ONE PRN Reason: As Directed Stop: 02/03/17 15:48 Last Admin: 02/03/17 15:56 Dose: 1,000 mls Departure - Departure Disposition: Home, Routine, Self-Care Clinical Impression: Chest wall pain Condition: Good Instructions: Chest Wall Pain (ED) Additional Instructions: You may alternate ibuprofen with acetaminophen every 4 hours as needed for pain. Apply ice for 15 minutes of every hour while awake. Follow up with primary care physician in 2-3 days if symptoms are not improving. Return emergency depart for increasing chest pain, shortness of breath, fainting , or any other concerns. Referrals: Bayron Montes De Oca MD [Primary Care Provider] - As per Instructions
[2017-02-03 15:58] LABS: % IMMATURE GRANULYOCYTES 0.2 % (0.0-1.1); ABSOLUTE IMMATURE GRANULOCYTES 0.02 10^3/uL (0.00-0.10); ADD DIFF? NO; ADD MORPH? NO; ADD SCAN? NO; ATYPICAL LYMPHOCYTE FLAG 0 (0-99); FRAGMENT RBC FLAG 0 (0-99); HEMATOCRIT 39.8 % (40.0-51.0); HEMOGLOBIN 13.9 g/dL (13.7-17.5); LEFT SHIFT FLG 0 (0-99); LIPEMIA HEMOLYSIS FLAG 90 (0-99); MEAN CELL HEMOGLOBIN 31.8 pg (27.9-34.1); MEAN CELL HEMOGLOBIN CONCENTR. 34.9 g/dL (32.4-36.7); MEAN CELL VOLUME 91.1 fL (81.5-99.8); PLATELET CLUMPS FLAG 10 (0-99); PLATELET COUNT 269 10^3/uL (150-400); RED BLOOD CELL COUNT 4.37 10^6/uL (4.40-6.38); RED CELL DISTRIBUTION WIDTH 14.2 % (11.5-15.2)
[2017-02-03 16:02] LABS: ANION GAP 13 mEq/L (8-16); CALCIUM 9.4 mg/dL (8.5-10.4); CARBON DIOXIDE 26 mEq/l (22-31); CHLORIDE 103 mEq/L (97-110); CREATININE 0.7 mg/dL (0.7-1.3); GLOMERULAR FILTRATION RATE > 60; GLUCOSE 93 mg/dL (70-100); POTASSIUM 4.6 mEq/L (3.5-5.2); SODIUM 142 mEq/L (134-144)
[2017-02-03 16:13] LABS: TROPONIN I < 0.012 ng/mL (0-0.034)
[2017-02-03 17:01] VITALS: BP 143/87; PULSE 79; RESP 15; TEMP 97.8; O2SAT 99
== END 2017-02-03 17:02 | disposition home or self-care (01) ==
DX: R07.89 Other chest pain (principal); Z87.891 Personal history of nicotine dependence

== ENCOUNTER 2017-06-30 19:59 | Emergency (ER) | payer OTHER ==
[2017-06-30 20:10] VITALS: RESP 16
--- NOTE | 2017-06-30 20:33 | CPEKG ---
Heart Rate: 95 RR Interval: 632 P-R Interval: 156 QRSD Interval: 82 QT Interval: 336 QTC Interval: 423 P [place]: 26 QRS [place]: -1 T Wave [place]: 22 EKG Severity - NORMAL ECG - EKG Impression: SINUS RHYTHM Electronically Signed By: Kristopher Joseph 30-Jun-2017 23:03:41
--- NOTE | 2017-06-30 20:43 | EDPHY ---
H & P Stated Complaint: sent by PCP lab results show high D dimer, CP since Thursday Time Seen by Provider: 06/30/17 20:43 - Personal History Current Tetanus/Diphtheria Vaccine: Yes - Medical/Surgical History Hx Asthma: No Hx Chronic Respiratory Disease: No Hx Diabetes: No Hx Cardiac Disease: No Hx Renal Disease: No Hx Cirrhosis: No Hx Alcoholism: Yes Hx HIV/AIDS: No Hx Splenectomy or Spleen Trauma: No Other PMH: med hx- migraines, fibromylagia, etoh (sober x2 years). surg- vasectomy,rt ft(cysts) and tonsils, elevated liver enzymes-2017 - Social History Smoking Status: Former smoker Constitutional: Initial Vital Signs Temperature (C) 36.9 C 06/30/17 20:08 Heart Rate 106 H 06/30/17 20:08 Respiratory Rate 16 06/30/17 20:08 Blood Pressure 138/95 H 06/30/17 20:08 O2 Sat (%) 96 06/30/17 20:08 O2 Delivery Mode Room Air Allergies/Adverse Reactions: No Known Allergies Allergy (Verified 12/23/16 15:59) Home Medications: Medication Instructions Recorded NK [No Known Home Meds] 02/03/17 Medical Decision Making - Diagnostics Imaging Results: Imaging Impressions Chest/Thorax CTA 06/30/17 20:57 Impression: 1. No pulmonary emboli. 2. Possible early pneumonia, right lower lobe. I discussed results with Dr. Joseph at 2225 hours. Imaging: Discussed imaging studies w/ call box wirer Radiologist ED Course/Re-evaluation: CHIEF COMPLAINT: Right-sided chest pain HISTORY OF PRESENT ILLNESS: The patient is a 31 year old male complaining of 3- 4 days of right-sided chest pain which is pleuritic in nature and radiates through to his back. It hurts worse when he takes a deep breath or tries to move physically for example sitting up in bed. He denies any trauma. He did have some physical activity moving some boxes but that was a few days before the pain started this past Thursday. He talked to his doctor to order some laboratory studies and the D-dimer was positive so his doctor asked him to come here. This patient denies any family history of heart disease outside of a grandmother at a later age. He denies any fevers or chills. He denies shortness of breath nausea vomiting chest pressure or any other symptoms except for this sharp pleuritic pain in the right chest. REVIEW OF SYSTEMS: A 10 point review of systems was performed and is negative with the exception of the elements mentioned in the history of present illness. PHYSICAL EXAM: HR, BP, O2 Sat, RR. Temp noted General Appearance: Alert, well hydrated, appropriate, and non-toxic appearing. Head: Atraumatic without scalp tenderness or obvious injury Eyes: Pupils equal, round, reactive to light and accommodation, EOMI, no trauma , no injection. Ears: Clear bilaterally, no perforation, normal landmarks Nose: Atraumatic, no rhinorrhea, clear. Throat: There is no erythema or exudates, no lesions, normal tonsils, mucus membranes moist. Neck: Supple, 2+ carotid upstroke, nontender, no lymphadenopathy. Respiratory: No retractions, no distress, no wheezes, and no accessory muscle use. Lungs are clear to auscultation bilaterally. Cardiovascular: Regular rate and rhythm, no murmurs, rubs, or gallops. Bilateral carotid, radial, dorsalis pedis, and posterior tibial pulses intact. Good capillary refill all extremities. Gastrointestinal: Abdomen is soft, nontender, non-distended, no masses, no rebound, no guarding, no peritoneal signs. Musculoskeletal: I can reproduce his pain by pushing on his right upper ribs to some extent. Otherwise, Normal active ROM of all extremities, atraumatic. Neurological: Alert, appropriate, and interactive. The patient has normal DTRs and non-focal cranial nerves, motor, sensory, and cerebellar exam. Skin: No rashes, good turgor, no nodules on palpation. Past medical history: Fibromyalgia otherwise noncontributory Past surgical history: Noncontributory Family history: None specifically no early coronary artery disease Social history: , employed, does not abuse tobacco drugs or alcohol DIAGNOSTICS/PROCEDURES/CRITICAL CARE TIME: Study: CT angiography of the chest rule out DVT Indication: elevated D-dimer pleuritic chest pain for several days Results: CT scan of the chest was obtained. The results of the study are normal. The study was read by the radiologist, Dr. Pastrana. I viewed the images myself on the PACS system. The 12 lead EKG was interpreted by myself. See hard copy and/or "tracemaster" electronic copy for interpretation. Sinus rhythm, rate 95. DIFFERENTIAL DIAGNOSIS: The differential diagnosis for the patient's chest pain included but was not limited to myocardial ischemia, pulmonary embolus, chest wall pain, pleural inflammation, and pulmonary infectious causes. MEDICAL DECISION MAKING: This patient is pleuritic and sharp chest pain which is reproducible with palpation and also with deep breaths or movement of his upper torso. He does have an elevated D-dimer. I do not feel that he has is a large risk for pulmonary embolus however his physician ordered the test and then sent him in for CT angiography. Will perform CT angiography. The patient is mildly tachycardic. 22:[address] Pastrana, radiologist. CTA negative for PE. PE study is negative. Plan to discharge home in good condition. His pain is likely musculoskeletal in origin. He will follow up with his primary care doctor for continued evaluation. Return precautions discussed. The patient is comfortable with this plan. - Data Points Laboratory Results: 06/30/17 20:24 POC Hgb 15.6 gm/dL gm/dL (13.7-17.5) POC Hct 46 % % (40-51) POC Sodium 140 mEq/L mEq/L (134-144) POC Potassium 3.8 mEq/L mEq/L (3.3-5.0) POC Chloride 102 mEq/L mEq/L (97-110) POC BUN 20 mg/dL mg/dL (7-23) POC Creatinine 1.0 mg/dL mg/dL (0.7-1.3) POC Glucose 120 mg/dL H mg/dL (70-100) Point of Care Test Results: 06/30/17 20:24 POC Sodium 140 POC Potassium 3.8 POC Chloride 102 POC BUN 20 POC Creatinine 1.0 POC Glucose 120 H Departure - Departure Disposition: Home, Routine, Self-Care Clinical Impression: Musculoskeletal chest pain Condition: Good Instructions: Chest Pain (ED), Thoracic Pain (ED) Additional Instructions: Follow-up with your primary doctor this week for continued evaluation. Return to the Emergency Department for fever, chest pain, shortness of breath, increasing pain or other worsening of condition. Referrals: Bayron Montes De Oca MD [Primary Care Provider] - As per Instructions Report Scribed for: Kristopher Joseph Report Scribed by: Senia Rondon Date of Report: 06/30/17 Time of Report: 22:10
[2017-06-30] MEDS ORDERED: IOPAMIDOL (ISOVUE 370) 100 ML BTL IV ONE (21:09)
[2017-06-30 22:50] VITALS: BP 122/78; PULSE 77; TEMP 98.1; O2SAT 97
== END 2017-06-30 22:48 | disposition home or self-care (01) ==
DX: R07.89 Other chest pain (principal); Z87.891 Personal history of nicotine dependence
CPT/HCPCS: 82947-QW; Q9967